=== PATIENT | female | born 1955 | race Caucasian/White ===

== ENCOUNTER 2016-07-25 17:44 | Observation (INO) | payer BC ==
[~2016-07-25 17:44] MED LIST: ADULT LOW DOSE81 MG PO; ADVIL200 M1 PO; AMBIEN10 M1 PO; AMBIEN10 MG PO; AMITRIPTYLINE H10 M1 PO; AMOXICILLIN875 M1 PO; ANTI-DIARRHEAL2 M1 PO; ASPIRIN81 MG PO; ATIVAN1 MG PO; ATORVASTATIN CA20 M1 PO; BIAXIN500 M2 PO; CALCIUM 6001.5 G PO; CALCIUM500 MG PO; CALCIUM600 M1 PO; CEFDINIR300 M1 PO; CIPROFLOXACIN750 M1 PO; CLONAZEPAM2 M1 PO; CLONAZEPAM2 MG PO; CYCLOBENZAPRINE5 M1 PO; DECADRON4 MG PO; DICLOFENAC SODI75 M2 PO; EQL FISH OIL 1,1 CA1 PO; EQL FISH OIL 11 EAC2 PO; FISH OIL 1,0001 CA PO; FISH OIL 11000 MG/CA PO; H PO; HYDROCODONE PO; LEVSIN0.125 M1 PO; MAXALT10 M1 PO; MAXALT10 MG PO; METFORMIN HCL500 M3 PO; MULTIVITAMIN1 TAB PO; NORCO 5/3251 TAB PO; NORTRIPTYLINE H25 M1 PO; OLANZAPINE20 M1 PO; OLANZAPINE5 M2 PO; OMEPRAZOLE40 M2 PO; PREDNISONE20 M1 PO; PRESERVISION A1 EAC4 PO; PRESERVISION SO1 CAP PO; PRILOSEC20 M1 PO; PROAIR HFA8.5 GM IH; PROBIOTIC1 EA10 PO; PROMETHEGAN25 MG RC; SERTRALINE HCL100 M5 PO; SUPER B COMPLEX1 CAP PO; TIZANIDINE HCL4 M3 PO; TOPAMAX25 M2 PO; TOPAMAX50 M3 PO; TYLENOL EXTRA500 MG PO; VENTOLIN HFA18 GM IH; VOLTAREN75 MG PO; ZOLOFT100 MG PO; ZYPREXA20 MG PO; ZYPREXA5 MG PO
[2016-07-25 18:15] LABS: BASO % 0.1 % (0-2); EOS % 1.9 % (0-7); EOSINOPHIL ABSOLUTE COUNT 0.1 tho/cmm (0.0-0.7); HCT-HEMATOCRIT 37.6 % (34.0-49.0); HGB-HEMOGLOBIN 12.5 gm/dl (12.0-15.5); IMMATURE GRANULOCYTES ABSOLUTE 0.02 tho/cmm (0-0.03); IMMATURE GRANULOCYTES PERCENT 0.3 % (0-0.3); LYMPH % 59.7 % (20-45); LYMPH ABSOLUTE COUNT 4.1 tho/cmm (0.8-4.5); MCH (MEAN CORPUSCULAR HGB) 32.3 pg (28.0-32.0); MCHC MEAN CORPUSCULAR HGB CONC 33.2 % (32.0-36.0); MCV (MEAN CELL VOLUME) 97.2 fl (82.0-96.0); MEAN PLATELET VOLUME 11.6 cmc (9.4-12.4); MONO % 6.5 % (0-12); MONOCYTE ABSOLUTE COUNT 0.5 tho/cmm (0.0-1.2); NEUTROPHIL ABSOLUTE COUNT 2.2 tho/cmm (1.6-8.0); NEUTROPHIL-AUTOMATED 2.2 tho/cmm (1.6-8.0); NEUTROPHILS % 31.5 % (40-80); PLATELET COUNT 209 tho/cmm (150-450); RED BLOOD COUNT 3.87 mil/cmm (4.00-5.20); RED CELL DISTRIBUTION WIDTH 16.1 % (12.4-16.4); WHITE BLOOD COUNT 6.9 tho/cmm (4.0-10.0)
[2016-07-25 18:32] LABS: ANION GAP 14 mmol/L (0-20); BLOOD UREA NITROGEN 18 mg/dl (6-24); CALCIUM 8.7 mg/dl (8.5-10.5); CARBON DIOXIDE-VENOUS 24 mmol/L (22-32); CHLORIDE 109 mmol/l (96-110); CREATININE 0.76 mg/dl (0.50-1.10); GLUCOSE 108 mg/dL (70-110); SODIUM 143 mmol/L (135-145); eGFR VALUE FOR BLACK >90 mL/Min
[2016-07-25 18:38] LABS: POTASSIUM 3.9 mmol/L (3.7-5.1)
[2016-07-26] MEDS ORDERED: BELSOMRA20 MG PO (11:49)
[2016-07-26] MEDS ORDERED: CELEBREX200 M1 PO (11:49)
[2016-07-26] MEDS ORDERED: ASPIRIN EC81 MG PO (11:50)
[2016-07-26] MEDS ORDERED: THERAPEUTIC M1 EAC3 PO (11:50)
[2016-07-26] MEDS ORDERED: TYLENOL EXTRA500 M1 PO (11:51)
[2016-07-26] MEDS ORDERED: TUSSIN DM COUG PO (11:51)
[2016-07-26] MEDS ORDERED: ALLEGRA ALLERG180 M1 PO (11:52)
[2016-07-26] MEDS ORDERED: ZANAFLEX4 M2 PO (13:25)
[2016-07-26] MEDS ORDERED: KLONOPIN1 M1 PO (13:26)
[2016-07-26] MEDS ORDERED: TOPAMAX50 M3 PO (13:27)
[2016-07-26] MEDS ORDERED: ZYPREXA5 M1 PO (13:29)
[2016-07-26] MEDS ORDERED: PAMELOR25 M1 PO (13:30)
[2016-07-26] MEDS ORDERED: AMBIEN10 M1 PO (13:31)
[2016-07-26] MEDS ORDERED: CALCIUM CARBON600 M2 PO (13:32)
[2016-07-26] MEDS ORDERED: GLUCOPHAGE XR500 M1 PO (13:33)
[2016-07-26] MEDS ORDERED: OMEPRAZOLE40 M2 PO (13:35)
[2016-07-26] MEDS ORDERED: FISH OIL 11000 MG/CA PO (13:36)
[2016-07-26] MEDS ORDERED: OLANZAPINE20 M1 PO (14:10)
== END 2016-07-26 14:50 ==
LOC: EDMED 17:44 → EMR2 21:14 → 5WE 22:31
PROVIDERS: Emergency Medicine; ADMIT Internal Medicine Cardiovascular Disease
DX: I07.1 Rheumatic tricuspid insufficiency (principal); E11.9 Type 2 diabetes mellitus without complications; I10 Essential (primary) hypertension; E78.5 Hyperlipidemia, unspecified; I44.0 Atrioventricular block, first degree; G47.33 Obstructive sleep apnea (adult) (pediatric); Z99.89 Dependence on other enabling machines and devices; Z79.891 Long term (current) use of opiate analgesic; Z79.899 Other long term (current) drug therapy; Z88.1 Allergy status to other antibiotic agents; Z88.8 Allergy status to other drugs, medicaments and biological substances; Z90.710 Acquired absence of both cervix and uterus; Z98.890 Other specified postprocedural states
CPT/HCPCS: A9500; G0378; J0280; J2785